=== PATIENT | male | born 1980 | race Two or more races ===

== ENCOUNTER 2018-02-11 13:05 | Emergency (ER) | payer MEDICAID ==
[~2018-02-11] VITALS: Ht 172.7 cm; Wt 79.4 kg
[2018-02-11] MEDS ORDERED: SODIUM CHLORIDE 0.9% 1,000 ML IV ONE (13:16)
[2018-02-11] MEDS ORDERED: KETOROLAC TROMETH 30 MG/ML 1ML VIAL IV ONE (13:30)
[2018-02-11 13:33] VITALS: BP 152/82
[2018-02-11 13:44] LABS: Basophils # (auto) 0.1 uL; Basophils % (auto) 0.8 % (0.0-2.0); Eosinophils # (auto) 0.1 uL; Eosinophils % (auto) 0.8 % (0.0-7.0); Hematocrit 50.7 % (41.0-53.0); Hemoglobin 16.8 g/dL (13.5-17.5); Lymphocytes # (auto) 1.9 uL; Lymphocytes % (auto) 12.5 % (10.0-50.0); Mean Corpuscular Hemoglobin 30.8 pg (28.0-32.0); Mean Corpuscular Hgb Conc. 33.2 g/dL (32.0-36.0); Mean Corpuscular Volume 92.7 fL (80.0-100.0); Neutrophils # (auto) 11.8 uL; Neutrophils % (auto) 78.9 % (37.0-80.0); Nucleated Red Blood Cells % 0.1 %; Platelet Count (auto) 260 10^3/uL (140-450); Red Blood Cells 5.47 10^6/uL (4.5-5.90); Red Cell Distribution Width 13.3 % (11.8-14.3)
[2018-02-11 14:01] LABS: Alanine Aminotransferase 55 U/L (16-61); Albumin 4.6 g/dL (3.4-5.0); Anion Gap 14 (5-15); Aspartate Aminotransferase 40 U/L (15-37); BUN/Creatinine Ratio 8.7; Blood Urea Nitrogen 10 mg/dL (7-18); Calcium 8.3 mg/dL (8.5-10.1); Carbon Dioxide 22 mmol/L (21-32); Chloride 100 mmol/L (98-107); GFR African American 91 mL/min; GFR Non-African American 75 mL/min; Glucose 85 mg/dL (74-106); Magnesium 2.5 mg/dL (1.6-2.6); Potassium 3.7 mmol/L (3.5-5.1); Sodium 136 mmol/L (136-145)
[2018-02-11 14:07] LABS: Alkaline Phosphatase 85 U/L (45-117); Bilirubin, Total 0.9 mg/dL (0.2-1.0); Total Protein 9.4 g/dL (6.4-8.2)
== END 2018-02-11 15:40 | disposition home or self-care (01) ==
LOC: ER 13:05 → EDBD 13:05 → ER 15:40
DX: R07.89 Other chest pain (principal); R11.2 Nausea with vomiting, unspecified; F17.290 Nicotine dependence, other tobacco product, uncomplicated; F12.90 Cannabis use, unspecified, uncomplicated
CPT/HCPCS: 36415; 71046; 76705; 80053; 80320; 83735; 84484; 85025; 93005; 94761